=== PATIENT | female | born 1990 | race Caucasian/White ===

== ENCOUNTER 2017-05-07 17:49 | Emergency (ER) | payer SELFPAY ==
[~2017-05-07] VITALS: Ht 162.6 cm; Wt 54.4 kg
[2017-05-07 18:00] VITALS: BP 125/62
--- NOTE | 2017-05-07 18:28 | PHYS DOC ---
Past History Past Medical History: STD, Other Past Surgical History: No Surgical History Smoking: Cigarettes, Greater than 1 pack/day Alcohol Use: Occasionally Drug Use: None Adult General Chief Complaint Chief Complaint: ABDOMINAL PAIN HPI HPI Is a pleasant 26-year-old about 4 weeks from her last LMP who presents with vaginal discharge that is malodorous nature that began 2 days ago. Patient noted crampy abdominal pain in the lower abdominal area with a malodorous increasing discharge sure it is gonorrhea. She's had a prior history of the same with chlamydia and gonorrhea in the past she did take on an recent new sexual partner and is not using any kind of protection. She does not believe she is . She denies any fevers, chills, vaginal bleeding is having some dysuria urgency or frequency. Patient denies any back pain, rash, joint pain or joint swelling. As the pain is not worse with movement or eating food or passing out months. Review of Systems Review of Systems Constitutional: Denies fever or chills [] Eyes: Denies change in visual acuity, redness, or eye pain [] HENT: Denies nasal congestion or sore throat [] Respiratory: Denies cough or shortness of breath [] Cardiovascular: No additional information not addressed in HPI [] GI: Denies nausea, vomiting, bloody stools or diarrhea she is having some crampy lower abdominal pain is intermittent.[] : He is having some dysuria urgency frequency with vaginal discharge Musculoskeletal: Denies back pain or joint pain [] Integument: Denies rash or skin lesions [] Neurologic: Denies headache, focal weakness or sensory changes [] Endocrine: Denies polyuria or polydipsia [ All other systems were reviewed and found to be within normal limits, except as documented in this note. Allergies Allergies Allergies Coded Allergies Type Severity Reaction Last Updated Verified ibuprofen Allergy Intermediate Hives, Swelling 05/28/15 No Physical Exam Physical Exam Vital signs recorded on chart within normal limits. Constitutional: Well developed, well nourished, no acute distress, non-toxic appearance. [] Cardiovascular:Heart rate regular rhythm, no murmur [] Lungs & Thorax: Bilateral breath sounds clear to auscultation [] Abdomen: Bowel sounds normal, soft, no tenderness, no masses, no pulsatile masses. : [] Patient does demonstrate purulent discharge coming from her cervix there is clear CMT on physical exam and bilateral adnexal tenderness. She has no other vaginal lesions is no vesicles are areas of inflammation. Skin: Warm, dry, no erythema, no rash. [] Back: No tenderness, no CVA tenderness. [] Neurologic: Alert and oriented X 3, normal motor function, normal sensory function, no focal deficits noted. [] Psychologic: Affect normal, judgement normal, mood normal. [] EKG EKG [] Radiology/Procedures Radiology/Procedures [] Course & Med Decision Making Course & Med Decision Making Pertinent Labs and Imaging studies reviewed. (See chart for details) []Presents with vaginal discharge after having unprotected sex with a relatively new partner. Patient has had a history of gonorrhea and chlamydia in the past and she believes this might be another exposure to the same. On physical exam patient does demonstrate some CMT bilateral external tenderness and. Discharge from her cervix although tested she did not wait around for the results. Patient further did not wait for treatment. After the testing was complete patient left upset and eloped from the facility. We'll attempt to contact her and still some the cultures for appropriate workup and encouraged her to seek treatment Did not stick around for receiving discharge instructions or actual treatment for her cervicitis. Dragon Disclaimer Dragon Disclaimer This electronic medical record was generated, in whole or in part, using a voice recognition dictation system. Departure Departure: Impression: Primary Impression: Cervicitis Additional Impression: Vaginal discharge Disposition: 01 HOME, SELF-CARE Condition: LEFT WITHOUT BEING SEEN Referrals: PCP,NO (PCP) Patient Instructions: Cervicitis Additional Instructions: discharge: I've spoken with the patient and/or caregivers. I've explained the patient's condition, diagnosis and treatment plan based on information available to me at this time. I've answered the patient's and/or caregivers questions and addressed any concerns. The patient and/or caregivers have a good understanding the patient's diagnosis, condition and treatment plan as can be expected at this point. Vital signs have been stabilized. The patient's condition is stable for discharge from the emergency department. The patient will pursue further outpatient evaluation with her primary care provider or other designated consulting physician as outlined in the discharge instructions. Patient and/or caregivers are agreeable to this plan of care and follow-up instructions have been explained in detail. The patient and/or caregivers have received these instructions in written format and expressed understanding of these discharge instructions. The patient and her caregivers are aware that if any significant change in condition or worsening of symptoms should prompt him to immediately return to this of the closest emergency department. If an emergent department is not readily available I would encourage him to call 911. Problem Qualifiers JAKE CADE MD May 07, 2017 18:28
[2017-05-07] MEDS ORDERED: AZITHROMYCIN 250 MG TABLET. PO ONE (19:00)
[2017-05-07] MEDS ORDERED: cefTRIAXone IM 250 MG VIAL IM ONE (19:00)
[2017-05-07 19:02] LABS: BACTERIA,URINE 0 /HPF (0-FEW); BILIRUBIN,URINE NEG (NEG); CLARITY,URINE HAZY; COLOR,URINE YELLOW; GLUCOSE,URINE NEG (NEG); NITRITE,URINE NEG (NEG); SQUAMOUS EPITHELIAL CELL,UR MOD /LPF; UROBILINOGEN,URINE 0.2 mg/dL (0.2 mg/dL)
== END 2017-05-07 19:15 | disposition left against medical advice (07) ==
LOC: ER 17:49
DX: N72 Inflammatory disease of cervix uteri (principal); N89.8 Other specified noninflammatory disorders of vagina; F17.210 Nicotine dependence, cigarettes, uncomplicated; Z88.6 Allergy status to analgesic agent
CPT/HCPCS: 81001; 87086; 99284; Q0111; 36415; 87491; 87591

== ENCOUNTER 2017-08-08 09:31 | Emergency (ER) | payer OTHER ==
[~2017-08-08] VITALS: Ht 162.6 cm; Wt 56.8 kg
[2017-08-08 09:31] VITALS: BP 125/62
[2017-08-08] MEDS ORDERED: PENI500T PO (10:21)
[2017-08-08] MEDS ORDERED: TRAM-48 PO (10:21)
--- NOTE | 2017-08-08 10:21 | PHYS DOC ---
Past History Past Medical History: No Pertinent History, STD, Other Past Surgical History: No Surgical History Smoking: Cigarettes, Greater than 1 pack/day Alcohol Use: Occasionally Drug Use: None Adult General Chief Complaint Chief Complaint: DENTAL PROBLEM HPI HPI 26-year-old female patient with history of smoking complaining of left lower jaw and tooth pain for 3 weeks that did not get better with Tylenol 3 and ibuprofen. Patient states she got dental insurance and had an appointment with her dentist on 18 of this month. Patient brought her daughter to emergency room and decided to check in for dental pain also. Patient denies fever and chills, vomiting and diarrhea, problem with swallowing. Review of Systems Review of Systems Constitutional: Denies fever or chills [] Eyes: Denies change in visual acuity, redness, or eye pain [] HENT: Denies nasal congestion or sore throat, reports dental pain [] Respiratory: Denies cough or shortness of breath [] Cardiovascular: No additional information not addressed in HPI [] GI: Denies abdominal pain, nausea, vomiting, bloody stools or diarrhea [] : Denies dysuria or hematuria [] Musculoskeletal: Denies back pain or joint pain [] Integument: Denies rash or skin lesions [] Neurologic: Denies headache, focal weakness or sensory changes [] Endocrine: Denies polyuria or polydipsia [] All other systems were reviewed and found to be within normal limits, except as documented in this note. Allergies Allergies Allergies Coded Allergies Type Severity Reaction Last Updated Verified ibuprofen Allergy Intermediate Hives, Swelling 05/28/15 No Physical Exam Physical Exam Constitutional: Well developed, well nourished, no acute distress, non-toxic appearance. [] HENT: Normocephalic, atraumatic, bilateral external ears normal, oropharynx moist, no oral exudates, nose normal, poor dental hygiene with missing several teeth. Large cavity in left lower molar #3 without sign of abscess[] Eyes: PERRLA, EOMI, conjunctiva normal, no discharge. [] Neck: Normal range of motion, no tenderness, supple, no stridor. [] Cardiovascular:Heart rate regular rhythm, no murmur [] Lungs & Thorax: Bilateral breath sounds clear to auscultation [] Neurologic: Alert and oriented X 3, normal motor function, normal sensory function, no focal deficits noted. [] Psychologic: Affect normal, judgement normal, mood normal. [] EKG EKG [] Radiology/Procedures Radiology/Procedures [] Course & Med Decision Making Course & Med Decision Making discharge: I've spoken with the patient and/or caregivers. I've explained the patient's condition, diagnosis and treatment plan based on information available to me at this time. I've answered the patient's and/or caregivers questions and addressed any concerns. The patient and/or caregivers have a good understanding the patient's diagnosis, condition and treatment plan as can be expected at this point. Vital signs have been stabilized. The patient's condition is stable for discharge from the emergency department. The patient will pursue further outpatient evaluation with her primary care provider or other designated consulting physician as outlined in the discharge instructions. Patient and/or caregivers are agreeable to this plan of care and follow-up instructions have been explained in detail. The patient and/or caregivers have received these instructions in written format and expressed understanding of these discharge instructions. The patient and her caregivers are aware that if any significant change in condition or worsening of symptoms should prompt him to immediately return to this of the closest emergency department. If an emergent department is not readily available I would encourage him to call 911. Dragon Disclaimer Dragon Disclaimer This electronic medical record was generated, in whole or in part, using a voice recognition dictation system. Departure Departure: Impression: Primary Impression: Dentalgia Additional Impression: Dental cavity Disposition: 01 HOME, SELF-CARE Condition: STABLE Referrals: PCP,NO (PCP) Patient Instructions: Dental Caries, Toothache-Brief Additional Instructions: Follow-up with your primary care physician in 3-5 days Return to ER if not getting better Quit smoking Scripts Penicillin V Potassium (PENICILLIN V POTASSIUM) 500 Mg Tablet 1 TAB PO TID, #30 TAB Prov: CONNOR CONSTANTINO MD 08/08/17 Tramadol Hcl (ULTRAM) 50 Mg Tablet 50 MG PO PRN Q6HRS Y for PAIN, #14 TAB Prov: CONNOR CONSTANTINO MD 08/08/17 Problem Qualifiers CONNOR CONSTANTINO MD Aug 08, 2017 10:21
== END 2017-08-08 10:56 | disposition home or self-care (01) ==
LOC: ER 09:31
DX: K02.9 Dental caries, unspecified (principal); Z87.891 Personal history of nicotine dependence; Z88.6 Allergy status to analgesic agent
CPT/HCPCS: 99283

== ENCOUNTER 2017-10-25 11:57 | Emergency (ER) | payer OTHER ==
[~2017-10-25] VITALS: Ht 162.6 cm; Wt 49.9 kg
[~2017-10-25 11:57] MED LIST: PENI500T PO; TRAM-48 PO
[2017-10-25] MEDS ORDERED: POLY10DR3 EACHEYE (12:22)
--- NOTE | 2017-10-25 12:23 | PHYS DOC ---
Past History Past Medical History: No Pertinent History, STD, Other Past Surgical History: No Surgical History Smoking: Cigarettes, Greater than 1 pack/day Alcohol Use: Occasionally Drug Use: None Adult General Chief Complaint Chief Complaint: EYE PROBLEMS HPI HPI Patient is a 26 year old F who presents with red irritated eyes associated with mild drainage noted mostly in the morning. She states that her children both have had pinkeye treated with antibiotic eyedrops. She has no other associated symptoms. She has no other exacerbating or relieving factors. Review of Systems Review of Systems Constitutional: Denies fever or chills [] Eyes: Negative except history of present illness HENT: Denies nasal congestion or sore throat [] Respiratory: Denies cough or shortness of breath [] Cardiovascular: No additional information not addressed in HPI [] GI: Denies abdominal pain, nausea, vomiting, bloody stools or diarrhea [] : Denies dysuria or hematuria [] Musculoskeletal: Denies back pain or joint pain [] Integument: Denies rash or skin lesions [] Neurologic: Denies headache, focal weakness or sensory changes [] Endocrine: Denies polyuria or polydipsia [] All other systems were reviewed and found to be within normal limits, except as documented in this note. Family History Family History No pertinent family medical history reported Current Medications Current Medications Current medications reviewed Allergies Allergies Allergies Coded Allergies Type Severity Reaction Last Updated Verified ibuprofen Allergy Intermediate Hives, Swelling 05/28/15 No Physical Exam Physical Exam Constitutional: Well developed, well nourished, no acute distress, non-toxic appearance. [] HENT: Normocephalic, atraumatic, bilateral external ears normal, oropharynx moist, no oral exudates, nose normal. [] Eyes: EOMI, no discharge. [] Conjunctival erythema noted bilaterally Neck: Normal range of motion, no tenderness, supple, no stridor. [] Cardiovascular:Heart rate regular rhythm Lungs & Thorax: Bilateral breath sounds clear to auscultation [] Abdomen: Bowel sounds normal, soft, no tenderness, no masses, no pulsatile masses. [] Extremities: No tenderness, no cyanosis, no clubbing, ROM intact, no edema. [] Neurologic: Alert and oriented X 3, normal motor function, normal sensory function, no focal deficits noted. [] Psychologic: Affect normal, judgement normal, mood normal. [] Current Patient Data Vital Signs Normal vital signs. Please review nursing documentation for specifics EKG EKG [] Radiology/Procedures Radiology/Procedures [] Course & Med Decision Making Course & Med Decision Making Pertinent Labs and Imaging studies reviewed. (See chart for details) [] Dragon Disclaimer Dragon Disclaimer This electronic medical record was generated, in whole or in part, using a voice recognition dictation system. Departure Departure: Impression: Primary Impression: Conjunctivitis due to adenovirus, both eyes Disposition: HOME, SELF-CARE Condition: STABLE Referrals: PCP,CANDELARIA (PCP) Patient Instructions: Conjunctivitis (Viral and Bacterial) Additional Instructions: Little was seen in the emergency department for redness in her eyes. No emergency medical condition was found on history or physical exam. Her symptoms are most consistent with pink eye, conjunctivitis. She was given a prescription for antibiotic eyedrops and advised to use saline drops regularly. She was also advised follow-up with her primary care doctor as needed for further management. Scripts Polymyxin B Sulf/Trimethoprim (POLYMYXIN B-TMP EYE DROPS) 10 Ml Drops 1 DROP EACHEYE QID for 7 Days, #10 ML Prov: JAVIER MURRY MD 10/25/17 JAVIER MURRY MD Oct 25, 2017 12:23
[2017-10-25 12:53] VITALS: BP 114/71
== END 2017-10-25 12:50 | disposition home or self-care (01) ==
LOC: ER 11:57
DX: B30.1 Conjunctivitis due to adenovirus (principal); F17.210 Nicotine dependence, cigarettes, uncomplicated; Z88.6 Allergy status to analgesic agent
CPT/HCPCS: 99283